=== PATIENT | male | born 1975 | race Caucasian/White ===

== ENCOUNTER 2019-04-19 13:55 | Emergency (ER) | payer MEDICARE ==
[~2019-04-19] VITALS: Ht 175.3 cm; Wt 122.7 kg
[~2019-04-19 13:55] MED LIST: CIPRO500 MG PO; HYDROCODONE-APA1 TAB PO; NICODERM C1 PATCH .3 TRANSDERM; ZESTRIL10 MG PO
[2019-04-19 14:11] VITALS: Ht 175.3 cm; Wt 122.7 kg
[2019-04-19 15:16] LABS: BASOPHILS 0.4 % (0-2); EOSINOPHILS 1.8 % (0-7); HEMATOCRIT 51.1 % (42.0-54.0); HEMOGLOBIN 16.6 g/dL (13.5-17.5); IMMATURE GRANULOCYTES 0.4 % (0-5); LYMPHOCYTES 22.5 % (15-50); MCH 29.9 pg (26.0-34.0); MCHC 32.5 g/dL (31.0-37.0); MCV 91.9 fL (80.0-100.0); MEAN PLATELET VOLUME 11.1 fL (7.4-10.4); NEUTROPHILS 65.9 % (40-80); PLATELET COUNT 291 10x3/uL (130-400); RBC 5.56 10x6/uL (4.20-6.10); WBC 14.6 10x3/uL (4.8-10.8)
[2019-04-19 15:25] LABS: CALC OSMOLALITY 278 mosm/kg (275-300); CALCIUM 9.1 mg/dL (8.5-10.1); CARBON DIOXIDE 35.7 mmol/L (21.0-32.0); CHLORIDE - SERUM 105 mmol/L (98-107); GLUCOSE 91 mg/dL (74-106); SODIUM 141 mmol/L (136-145); UREA NITROGEN 6 mg/dL (7-18); eGFR NON AFRICAN AMERICAN 87 mL/min (90-120)
[2019-04-19 15:42] LABS: ALBUMIN 3.7 g/dL (3.4-5.0); ALKALINE PHOSPHATASE 108 U/L (46-116); ALT (SGPT) 13 U/L (10-68); BILIRUBIN - TOTAL 0.32 mg/dL (0.2-1.3); CKMB 0.3 U/L (0.0-3.6); CREATINE KINASE 55 UL (21-232); PROTEIN - SERUM 7.8 g/dL (6.4-8.2); TROPONIN-I < 0.017 ng/mL (0.000-0.060)
[2019-04-19] MEDS ORDERED: PREDNISONE10 MG PO (16:42)
[2019-04-19] MEDS ORDERED: SCOT-TUSSI10 MG/5 ML PO (16:42)
[2019-04-19] MEDS ORDERED: ALBUTEROL SULF8.5 GM INH (16:42)
[2019-04-19] MEDS ORDERED: ZPAK PO (16:42)
[2019-04-19 17:11] LABS: CKMB 0.3 U/L (0.0-3.6); CREATINE KINASE 58 UL (21-232)
[2019-04-19 17:12] LABS: TROPONIN-I < 0.017 ng/mL (0.000-0.060)
[2019-04-19 18:27] VITALS: BP 141/82
== END 2019-04-19 18:20 | disposition home or self-care (01) ==
LOC: D.ER 13:55
PROVIDERS: Family Medicine
DX: J18.9 Pneumonia, unspecified organism (principal)

== ENCOUNTER 2020-03-17 15:07 | Emergency (ER) | payer MEDICARE ==
[~2020-03-17] VITALS: Ht 175.3 cm; Wt 125.0 kg
[~2020-03-17 15:07] MED LIST changes: +ALBUTEROL SULF8.5 GM INH; +PREDNISONE10 MG PO; +SCOT-TUSSI10 MG/5 ML PO; +ZPAK PO
[2020-03-17 15:14] VITALS: Ht 175.3 cm; Wt 125.0 kg
[2020-03-17 16:32] LABS: BASOPHILS 0.2 % (0-2); EOSINOPHILS 1.2 % (0-7); HEMATOCRIT 47.9 % (42.0-54.0); HEMOGLOBIN 15.9 g/dL (13.5-17.5); IMMATURE GRANULOCYTES 0.3 % (0-5); LYMPHOCYTES 14.2 % (15-50); MCHC 33.2 g/dL (31.0-37.0); MCV 90.4 fL (80.0-100.0); MEAN PLATELET VOLUME 11.6 fL (7.4-10.4); MONOCYTES 12.1 % (2-11); RDW 13.7 % (11.5-14.5); WBC 14.3 10x3/uL (4.8-10.8)
[2020-03-17 16:38] LABS: PLATELET COUNT 190 10x3/uL (130-400)
[2020-03-17 16:44] LABS: APTT 29.7 SECONDS (22.8-39.4); INR 0.92 (0.85-1.17); PROTIME 12.3 SECONDS (11.6-15.0)
[2020-03-17] MEDS ORDERED: METHOCARBAMOL500 MG PO (16:48)
[2020-03-17] MEDS ORDERED: TORADOL10 MG PO (16:48)
[2020-03-17 17:05] LABS: CALC OSMOLALITY 275 mosm/kg (275-300); CALCIUM 8.9 mg/dL (8.5-10.1); CARBON DIOXIDE 28.2 mmol/L (21.0-32.0); CHLORIDE - SERUM 105 mmol/L (98-107); CREATININE - SERUM 0.8 mg/dL (0.6-1.3); GLUCOSE 103 mg/dL (74-106); SODIUM 139 mmol/L (136-145); UREA NITROGEN 7 mg/dL (7-18); eGFR NON AFRICAN AMERICAN > 90 mL/min (90-120)
[2020-03-17 17:08] LABS: ALBUMIN 3.3 g/dL (3.4-5.0); ALKALINE PHOSPHATASE 97 U/L (30-120); BILIRUBIN - TOTAL 0.27 mg/dL (0.2-1.3); PROTEIN - SERUM 6.6 g/dL (6.4-8.2)
[2020-03-17 17:09] LABS: ALT (SGPT) 4 U/L (10-68)
[2020-03-17 17:14] VITALS: BP 136/78
== END 2020-03-17 17:17 | disposition home or self-care (01) ==
LOC: D.ER 15:07
PROVIDERS: Family Medicine
DX: S16.1XXA Strain of muscle, fascia and tendon at neck level, initial encounter (principal); S00.91XA Abrasion of unspecified part of head, initial encounter; V49.9XXA Car occupant (driver) (passenger) injured in unspecified traffic accident, initial encounter; S39.012A Strain of muscle, fascia and tendon of lower back, initial encounter